=== PATIENT | female | born 1970 | race Caucasian/White ===

== ENCOUNTER 2017-11-17 07:06 | Day surgery (SDC) | payer OTHER ==
[2017-11-17] MEDS ORDERED: Lactated Ringers 1,000 ML IV SCH (07:15)
[2017-11-17] MEDS ORDERED: Sodium Chloride 0.9% 10 ML Syringe FLUSH PRN (07:15)
[2017-11-17] MEDS ORDERED: Midazolam 1 MG/ML 2 ML SDV IV ONE (09:00)
[2017-11-17] MEDS ORDERED: Lidocaine 2% 100 MG/5 ML Syringe IVPUSH ONE (09:00)
[2017-11-17] MEDS ORDERED: Propofol 200 MG/20 ML SDV IV ONE (09:00)
--- NOTE | 2017-11-17 09:18 | PCM.OPNOTE ---
- General Post-Op/Procedure Note Date of Surgery/Procedure: 11/17/17 Operative Procedure(s): egd with bx Findings: gastric mass Pre Op Diagnosis: hematemasis Post-Op Diagnosis: gastric mass Anesthesia Technique: MAC Primary Surgeon: Ilan Rao Anesthesia Provider: Martin Chiu Pathology: gastric mass Complications: None Condition: Good Free Text/Narrative:: see dictation
--- NOTE | 2017-11-17 13:16 | OR ---
DATE OF OPERATION: 11/17/2017 SURGEON: Ilan Rao MD PROCEDURE PERFORMED: Esophagogastroduodenoscopy with cold forceps biopsy. PREOPERATIVE DIAGNOSIS: Hematemesis. POSTOPERATIVE DIAGNOSIS: Antral mass. INDICATIONS FOR PROCEDURE: This is a 47-year-old white female who apparently last week had a single episode of hematemesis. She was offered and accepted an EGD. DESCRIPTION OF PROCEDURE: After an excellent IV sedation was administered, the bite block was inserted. The flexible endoscope was passed without difficulty down the patient's esophagus into the stomach. Stomach was insufflated. Scope was passed through the pylorus to the second portion of the duodenum and slowly withdrawn. The following findings were noted: The duodenum was unremarkable. The stomach just at the edge of the antrum reveals a pedunculated lesion. With this half of it encased and what appears to be normal mucosa, and then what appears to be extruding from part of it has a lesion, which was biopsied with cold biopsy forceps and sent for permanent. The esophagus was unremarkable. Stomach was deflated, scope was removed, the patient tolerated the procedure well, and was taken to recovery room in good condition. /[id number] /MODL
== END 2017-11-17 10:12 | disposition home or self-care (01) ==
LOC: FB.SDS 07:06
PROVIDERS: ATTEND Surgery
DX: K31.7 Polyp of stomach and duodenum (principal); I96 Gangrene, not elsewhere classified; B96.81 Helicobacter pylori [H. pylori] as the cause of diseases classified elsewhere; Z79.899 Other long term (current) drug therapy
CPT/HCPCS: 81025; 88305; 88341; 88342; J2250; J2704; J7120

== ENCOUNTER 2017-12-27 17:08 | Inpatient (IN) | payer OTHER ==
[2017-12-27] MEDS ORDERED: Ondansetron 4 MG/2 ML SDV IV PRN (18:10)
[2017-12-27] MEDS ORDERED: Sodium Chloride 0.9% 250 ML IV SCH (18:15)
[2017-12-27] MEDS ORDERED: Sodium Chloride 0.9% 1,000 ML IV SCH (18:15)
[2017-12-27] MEDS: Pantoprazole 40 MG Vial IVPUSH SCH (19:54)
[2017-12-27] MEDS: Sodium Chloride 0.9% 10 ML Syringe FLUSH PRN (19:54)
--- NOTE | 2017-12-28 08:10 | PCM.OPNOTE ---
- General Post-Op/Procedure Note Date of Surgery/Procedure: 12/28/17 Operative Procedure(s): egd with bx and fulgeration Findings: inflammatory polyp of less curve Pre Op Diagnosis: gastric polyp Post-Op Diagnosis: Same Anesthesia Technique: MAC Primary Surgeon: Ilan Rao Anesthesia Provider: Johnny Villaseñor Pathology: specimen Complications: None Condition: Good Free Text/Narrative:: Intake & Output 12/27/17 12/28/17 12/28/17 22:59 06:59 14:59 Intake Total 0 1349 Output Total 600 900 Balance -600 449 see dictation
[2017-12-28] MEDS: Pantoprazole 40 MG Vial IVPUSH SCH ×2 (08:51→19:24)
[2017-12-28] MEDS: D5 1/2 NS w/ 20 mEq/L KCl 1,000 ML IV SCH ×2 (09:47→23:19)
--- NOTE | 2017-12-28 12:49 | OR ---
DATE OF OPERATION: 12/28/2017 SURGEON: Ilan Rao MD PROCEDURE PERFORMED: EGD with biopsy and fulguration of bleeding inflammatory polyp. PREOPERATIVE DIAGNOSIS: Gastrointestinal bleeding with inflammatory polyp. POSTOPERATIVE DIAGNOSIS: Gastrointestinal bleeding with inflammatory polyp. INDICATIONS FOR PROCEDURE: This is a 47-year-old white female who is well known to my service. She was admitted and underwent an upper endoscopy for an upper gastrointestinal bleed 2 months ago. She was noted at that time to have an inflammatory polyp which was confirmed on biopsy and also to have Helicobacter pylori infection. We treated the infection with successful resolution of her initial problems. She did well until 2 days ago where she started to have some continued abdominal GI discomfort and was noted yesterday to be anemic. She received a 2 unit blood transfusion and was brought back to the endoscopy suite today to further evaluate the polyp. DESCRIPTION OF OPERATION: After an excellent IV sedation was administered, the bite block was inserted. The flexible endoscope was passed without difficulty down the patient's esophagus into the stomach. The stomach was insufflated and the polyp was identified slightly smaller than before having a normal coat of mucosa with an area of inflammation. Attempts to shave the area of inflammation off were successful. There was still some areas of bleeding. We were able to get our biopsy loop down around to the base of the polyp. However, attempts to fulgurate through were not successful and these were terminated due to the fact that I was worried about potential perforation of the stomach. We then fulgurated the areas that were bleeding and did stop the hemorrhage successfully. The biopsy specimen was retrieved and sent for pathology. The patient was taken to recovery in good condition. Plan is exploratory laparotomy tomorrow with wedge excision of this lesion that continues to bleed. We will also obtain a CT scan of the abdomen and pelvis today as part of our preoperative evaluation. /[id number] /MODL
[2017-12-28] MEDS ORDERED: Diatrizoate Meglumine/Diatrizoate Sodium 37% 30 ML Bottle PO ONE (13:45)
[2017-12-28] MEDS ORDERED: Iopamidol 755 Mg/ML 100 ML Bottle IV ONE (13:45)
--- NOTE | 2017-12-28 15:15 | CT ---
INDICATION: Bleeding inflammatory polyp of the stomach, post endoscopy, area of the lesser curvature gastric antrum. CT ABDOMEN AND PELVIS WITH CONTRAST: Spiral 2.5-mm axial sections were obtained through the abdomen and pelvis with oral and IV contrast (80 mL Isovue- 370 at 1.5 mL per second), with sagittal and coronal reconstructions, 2017. No comparison studies were available. Total Exam DLP = 335.50 mGy-cm. A polypoid mass is noted extending into the distal gastric body - gastric antrum at the anterior wall of the stomach. Thickening of the wall of the stomach is noted. The mass appears to be heterogeneous with increased density - contrast enhancement suggested centrally. Average Hounsfield units were approximately 62.7 on the axial image and approximately 53 on the coronal image and 66.6 Hounsfield units on the sagittal portion of the examination. The mass measures 36 x 47 mm axially and 31 x 38 mm coronally and is arising from the anterior gastric wall, extending posteriorly toward the posterior gastric wall in the area of the distal body of the stomach. A possible 6-mm lymph node is suggested in the anterior abdomen at axial image # 65 and coronal image #24 adjacent to the transverse colon and gastric wall in that area. This is nonspecific. No suspicious appearing retroperitoneal or mesenteric lymphadenopathy was identified - no definite metastatic disease process, either localized or distant, was identified. The liver and gallbladder , adrenals, kidneys, spleen, and pancreas all appear to be within normal limits. The common bile duct was normal in caliber. No evidence of free air or obstruction of the bowel was seen. There is noted a small amount of free fluid in the posterior cul-de-sac on the right, which most likely is physiologic, but should be correlated clinically. The uterus had a somewhat heterogeneous appearance, of questionable significance. The urinary bladder was unremarkable. IMPRESSION: 1. Polypoid lesion at the anterior caudal wall of the distal gastric body, etiology indeterminate. No definite evidence for metastatic disease process is identified. A single, 6-mm node is noted in an area adjacent to that polyp. 2. A small amount of free fluid is noted in the posterior cul-de-sac, which may be physiologic. Report faxed to Dr. Ilan Rao on 12/28/2017 at 1510 hours. [facility]
[2017-12-29] MEDS: Pantoprazole 40 MG Vial IVPUSH SCH ×2 (06:31→17:44)
[2017-12-29] MEDS: Sodium Chloride 0.9% 10 ML Syringe FLUSH PRN ×2 (07:30→09:09)
[2017-12-29] MEDS ORDERED: Propofol 200 MG/20 ML SDV IV ONE ×2 (07:30→09:13)
[2017-12-29] MEDS ORDERED: ceFAZolin 1 GM Vial IVPUSH ONE (09:00)
[2017-12-29] MEDS ORDERED: Lactated Ringers 1,000 ML IV ONE ×3 (09:13→12:28)
[2017-12-29] MEDS ORDERED: Ketorolac 30 MG/ML SDV IVPUSH ONE (09:13)
[2017-12-29] MEDS ORDERED: Ondansetron 4 MG/2 ML SDV IVPUSH ONE (09:13)
[2017-12-29] MEDS ORDERED: Glycopyrrolate 0.2 MG/ML 5 ML MDV IV ONE (09:13)
[2017-12-29] MEDS ORDERED: fentaNYL 100 MCG/2 ML SDV IV ONE (09:13)
[2017-12-29] MEDS ORDERED: Phenylephrine 1% 10 MG/ML SDV IV ONE (09:13)
[2017-12-29] MEDS ORDERED: Rocuronium 100 MG/10 ML MDV IV ONE (09:13)
[2017-12-29] MEDS ORDERED: Dexamethasone 4 MG/ML 5 ML MDV IVPUSH ONE (09:13)
[2017-12-29] MEDS ORDERED: Midazolam 1 MG/ML 2 ML SDV IV ONE (09:13)
[2017-12-29] MEDS ORDERED: Lidocaine 1% with EPINEPHrine 1:100,000 20 ML MDV INFILT ONE (09:29)
[2017-12-29] MEDS ORDERED: Bupivacaine 0.5% 30 ML SDV INFILT ONE (09:29)
--- NOTE | 2017-12-29 10:46 | PCM.OPNOTE ---
- General Post-Op/Procedure Note Date of Surgery/Procedure: 12/29/17 Operative Procedure(s): wedge resectin of gastric polyp Findings: polyp leision ant gastric wall had a exophytic compnent 1 cm margin Pre Op Diagnosis: gastric polyp Post-Op Diagnosis: Same Anesthesia Technique: General ET Tube, Local (8 ml 1% lido with epi/0.5% buvipicaine) Primary Surgeon: Ilan Rao Anesthesia Provider: Johnny Villaseñor Pathology: stomach with polyp Fluid Replacement, Intraop: 1,350 EBL in mLs: 50 Complications: None Condition: Good Free Text/Narrative:: see dictation Intake & Output
[2017-12-29] MEDS: Acetaminophen 1,000 MG in Premix Bag 1 BAG IV SCH ×3 (11:37→21:59)
[2017-12-29] MEDS: Morphine 2 MG/ML Syringe IVPUSH PRN ×2 (15:26→18:59)
[2017-12-29] MEDS: Lactated Ringers 1,000 ML IV SCH ×2 (15:36→23:56)
--- NOTE | 2017-12-29 15:49 | OR ---
DATE OF OPERATION: 12/29/2017 SURGEON: Ilan Rao MD PROCEDURE PERFORMED: Exploratory laparotomy with wedge resection of gastric polyp. PREOPERATIVE DIAGNOSIS: Gastric polyp with history of bleeding. POSTOPERATIVE DIAGNOSIS: Gastric polyp with history of bleeding. INDICATIONS FOR PROCEDURE: Ms. Haskins is a 47-year-old white female, who was admitted twice in the past several months for upper gastrointestinal bleeding. She was initially found to have a polypoid lesion on her stomach wall with diagnosis being an inflammatory polyp. She was also noted to have a marked Helicobacter pylori infection, was subsequently treated with resolution of her symptoms with the plan for a followup scope to see if this lesion involuted. Earlier this week, she was admitted with a history of anemia, black stools, and did receive a 2 unit blood transfusion. Yesterday, underwent an upper endoscopy, was noted to have a polyp still there, which was bleeding. The bleeding was controlled with electrocautery. We were unable to remove the lesion and therefore elected to do a wedge excision of this area. CT scan was obtained, which demonstrated the polyp lesion. DESCRIPTION OF PROCEDURE: After an excellent general anesthetic was administered via endotracheal tube, the patient was prepped and draped in usual sterile manner. A 1:1 mixture of 1% lidocaine with epinephrine 0.5% bupivacaine was used to infiltrate the midline from the xiphoid process down to the umbilicus. A vertical midline incision was carried out with a #15 scalpel blade and bleeding was controlled with electrocautery. The midline fascia was divided with electrocautery and the abdominal cavity was entered. The peritoneum was entered. The hand was inserted and liver was palpated as well as the spleen with no marked abnormality was noted. The polypoid lesion was easily mobilized and delivered out through the midline incision. This had an exophytic component as well. The mesentery was divided in the area of this lesion and specimen was passed off the field to be submitted. Stay sutures of 3-0 Vicryl were placed in 4 quadrants around the lesion, and after marking out approximately 1 cm to 1.5 cm margin, the stomach was entered using electrocautery and sharp dissection was used to dissect around circumferentially around the base of the polyp. The tissue grossly appeared to be normal and inferior, superior, and medial aspects of the specimen were marked on the gastric mucosa and the specimen was passed off the field. The defect then was closed in 2 layers, hand-sewn with 3-0 Vicryl, the 1st layer being a running [employer] stitch imbricating the stomach followed by an interrupted 3-0 Vicryl and Lembert stitches to imbricate the suture line. A nasogastric tube was then carefully passed down and palpated to be in good position well above the suture line and was taped into position. The wound was irrigated and then the stomach was then returned to normal anatomic position. The midline defect was closed with a #2 Prolene. The skin was then closed with erich. Needle, sponge, and instrument counts were reported as correct. EBL was approximately 50 mL. Fluids received was 1350. /[id number] 1540 /MODL
[2017-12-29] MEDS: D5 1/2 NS w/ 20 mEq/L KCl 1,000 ML IV SCH (15:57)
[2017-12-30] MEDS: Morphine 2 MG/ML Syringe IVPUSH PRN ×5 (00:26→23:35)
[2017-12-30] MEDS: Acetaminophen 1,000 MG in Premix Bag 1 BAG IV SCH (05:11)
[2017-12-30] MEDS: Pantoprazole 40 MG Vial IVPUSH SCH ×2 (05:32→17:02)
--- NOTE | 2017-12-30 07:50 | PCM.SURGPN ---
- General Info Date of Service: 12/30/17 POD#: 1 Functional Status: Reports: Pain Controlled, Urinating, Incentive Spirometry. Denies: New Symptoms - Review of Systems Pulmonary: Reports: No Symptoms Cardiovascular: Reports: No Symptoms Gastrointestinal: Reports: Abdominal Pain - Patient Data Vitals - Most Recent: Last Vital Signs Temp 36.7 C 12/30/17 05:30 Pulse 71 12/30/17 05:30 Resp 18 12/30/17 05:30 BP 98/63 12/30/17 05:30 Pulse Ox 96 12/30/17 05:30 Weight - Most Recent: 58.105 kg I&O - Last 24 Hours: Intake & Output 12/29/17 12/30/17 12/30/17 22:59 06:59 14:59 Intake Total 807 1319 Output Total 1050 875 Balance -243 444 Lab Results Last 24 Hrs: Laboratory Results - last 24 hr 12/29/17 12/30/17 12/30/17 Range/Units 07:45 06:50 06:50 WBC 11.8 (4.5-12.0) X10-3/uL RBC 2.99 L (3.23-5.20) x10(6)uL Hgb 10.3 L 8.4 L (11.5-15.5) g/dL Hct 25.5 L (30.0-51.3) % MCV 85.5 (80-96) fL MCH 28.0 (27.7-33.6) pg MCHC 32.8 (32.2-35.4) g/dL RDW 14.2 (11.5-15.5) % Plt Count 223 (125-369) X10(3)uL MPV 8.9 (7.4-10.4) fL Neut % (Auto) 75.0 (46-82) % Lymph % (Auto) 14.6 (13-37) % [place] % (Auto) 9.8 (4-12) % Eos % (Auto) 0 L (1.0-5.0) % Baso % (Auto) 0 (0-2) % Neut # (Auto) 8.9 H (1.6-8.3) # Lymph # (Auto) 1.7 (0.6-5.0) # [place] # (Auto) 1.2 (0.0-1.3) # Eos # (Auto) 0.0 (0.0-0.8) # Baso # (Auto) 0.0 (0.0-0.2) # Sodium 143 (135-145) mmol/L Potassium 4.1 (3.5-5.3) mmol/L Chloride 108 (100-110) mmol/L Carbon Dioxide 28 (21-32) mmol/L BUN 8 D (7-18) mg/dL Creatinine 1.0 (0.55-1.02) mg/dL Est Cr Clr Drug Dosing 54.41 mL/min Estimated GFR (MDRD) 59 L (>60) BUN/Creatinine Ratio 8.0 L (9-20) Glucose 104 (80-116) mg/dL Calcium 7.8 L (8.6-10.2) mg/dL Med Orders - Current: Current Medications Lactated Ringer's (Ringers, Lactated) 1,000 mls @ 125 mls/hr IV ASDIRECTED [facility] Last Admin: 12/29/17 23:56 Dose: 125 mls/hr Morphine Sulfate (Morphine) 2 mg IVPUSH Q1H PRN PRN Reason: Pain (severe 7-10) Last Admin: 12/30/17 00:26 Dose: 2 mg Ondansetron HCl (Zofran) 4 mg IV Q4H PRN PRN Reason: Nausea/Vomiting Pantoprazole Sodium (Protonix Iv) 40 mg IVPUSH Q12H [facility] Last Admin: 12/30/17 05:32 Dose: 40 mg Sodium Chloride (Saline Flush) 10 ml FLUSH ASDIRECTED PRN PRN Reason: Keep Vein Open Last Admin: 12/29/17 09:09 Dose: 10 ml Discontinued Medications Bupivacaine HCl (Marcaine 0.5%) 10 ml INFILT .STK-MED ONE Stop: 12/29/17 09:30 Last Admin: 12/29/17 09:29 Dose: 10 ml Cefazolin Sodium (Ancef) 1 gm IVPUSH ONETIME ONE Stop: 12/29/17 09:01 Last Admin: 12/29/17 09:06 Dose: 1 gm Diatrizoate Meglum/Diatrizoate Sod (Gastrografin 37%) 30 ml PO . DIRECTED ONE Stop: 12/28/17 13:46 Last Admin: 12/28/17 13:58 Dose: 30 ml Sodium Chloride (Normal Saline) 1,000 mls @ 125 mls/hr IV ASDIRECTED [facility] Last Admin: 12/28/17 02:13 Dose: 125 mls/hr Sodium Chloride (Normal Saline) 250 mls @ 100 mls/hr IV ASDIRECTED [facility] Last Admin: 12/27/17 23:52 Dose: 100 mls/hr Potassium Chloride/Dextrose/Sod Cl (D5 1/2 Ns W/ 20 Meq/L Kcl) 1,000 mls @ 75 mls/hr IV Q13H [facility] Last Admin: 12/29/17 15:57 Dose: Not Given Acetaminophen 1,000 mg/ Premix 100 mls @ 400 mls/hr IV Q6H [facility] Stop: 12/30/17 05:14 Last Admin: 12/30/17 05:11 Dose: 400 mls/hr Lactated Ringer's (Ringers, Lactated) 1,000 mls @ 999 mls/hr IV BOLUS ONE Stop: 12/29/17 13:28 Last Admin: 12/29/17 12:52 Dose: 999 mls/hr Lactated Ringer's (Ringers, Lactated) 1,000 mls @ 999 mls/hr IV BOLUS ONE Stop: 12/29/17 13:25 Last Admin: 12/29/17 12:50 Dose: 999 mls/hr Iopamidol (Isovue-370 (76%)) 100 ml IV ONETIME ONE Stop: 12/28/17 13:46 Last Admin: 12/28/17 13:58 Dose: 80 ml Lidocaine/Epinephrine (Xylocaine 1% With Epinephrine 1:100,000) 10 ml INFILT .STK-MED ONE Stop: 12/29/17 09:30 Last Admin: 12/29/17 09:29 Dose: 10 ml - Exam Wound/Incisions: Dressing Dry and Intact Lungs: Clear to Auscultation, Normal Respiratory Effort, Rhonchi Cardiovascular: Regular Rate GI/Abdominal Exam: Normal Bowel Sounds, Soft, Abnormal Bowel Sounds (hypoactive ) - Problem List & Annotations (1) Mass of stomach SNOMED Code(s): 675225515 Code(s): K31.9 - DISEASE OF STOMACH AND DUODENUM, UNSPECIFIED Status: Acute Current Visit: No - Problem List Review Problem List Initiated/Reviewed/Updated: Yes - My Orders Last 24 Hours: Active Orders 24 hr Category Date Time Status Ambulate [RC] .TID Care 12/29/17 10:37 Active Gastrointestinal Tube Mgmt [RC] QSHIFT Care 12/29/17 10:36 Active Notify Provider Intake and Out [RC] PRN Care 12/29/17 10:39 Active Notify Provider Vital Signs [RC] PRN Care 12/29/17 10:39 Active Oxygen Therapy [RC] PRN Care 12/29/17 10:37 Active RT Incentive Spirometry [RC] Q2HWA Care 12/29/17 10:36 Active Lactated Ringers [Ringers, Lactated] 1,000 ml Med 12/29/17 10:45 Active IV ASDIRECTED Morphine Med 12/29/17 10:36 Active 2 mg IVPUSH Q1H PRN SCD [Sequential Compression Device] [OM.PC] Routine Oth 12/29/17 07:11 Ordered Medication Orders Lactated Ringer's (Ringers, Lactated) 1,000 mls @ 125 mls/hr IV ASDIRECTED [facility] Last Admin: 12/29/17 23:56 Dose: 125 mls/hr Infusion: 12/29/17 23:36 Dose: 125 mls/hr Admin: 12/29/17 15:36 Dose: 125 mls/hr Morphine Sulfate (Morphine) 2 mg IVPUSH Q1H PRN PRN Reason: Pain (severe 7-10) Last Admin: 12/30/17 00:26 Dose: 2 mg Admin: 12/29/17 18:59 Dose: 2 mg Admin: 12/29/17 15:26 Dose: 2 mg Ondansetron HCl (Zofran) 4 mg IV Q4H PRN PRN Reason: Nausea/Vomiting Pantoprazole Sodium (Protonix Iv) 40 mg IVPUSH Q12H [facility] Last Admin: 12/30/17 05:32 Dose: 40 mg Admin: 12/29/17 17:44 Dose: 40 mg Admin: 12/29/17 06:31 Dose: 40 mg Admin: 12/28/17 19:24 Dose: 40 mg Admin: 12/28/17 08:51 Dose: 40 mg Admin: 12/27/17 19:54 Dose: 40 mg Sodium Chloride (Saline Flush) 10 ml FLUSH ASDIRECTED PRN PRN Reason: Keep Vein Open Last Admin: 12/29/17 09:09 Dose: 10 ml Admin: 12/29/17 07:30 Dose: 10 ml Admin: 12/27/17 19:54 Dose: 10 ml - Assessment Assessment (Free Text/Narrative):: doing quite well - Plan Plan (Free Text/Narrative):: continue current rx anticipate d/c of NGT later today.
[2017-12-30] MEDS: Lactated Ringers 1,000 ML IV SCH (08:40)
[2017-12-30] MEDS: D5 1/2 NS w/ 20 mEq/L KCl 1,000 ML IV SCH (17:07)
[2017-12-30] MEDS: Sodium Chloride 0.9% 10 ML Syringe FLUSH PRN (23:37)
[2017-12-31] MEDS: D5 1/2 NS w/ 20 mEq/L KCl 1,000 ML IV SCH ×4 (01:11→20:28)
[2017-12-31] MEDS: Pantoprazole 40 MG Vial IVPUSH SCH ×2 (05:18→18:06)
[2017-12-31] MEDS: Morphine 2 MG/ML Syringe IVPUSH PRN ×3 (08:22→22:22)
--- NOTE | 2017-12-31 09:18 | PCM.SURGPN ---
- General Info POD#: 2 Functional Status: Reports: Pain Controlled, Ambulating, Urinating - Review of Systems General: Reports: No Symptoms Pulmonary: Reports: No Symptoms Cardiovascular: Reports: No Symptoms Gastrointestinal: Reports: Abdominal Pain (little incisional ). Denies: Flatus - Patient Data Vitals - Most Recent: Last Vital Signs Temp 36.3 C 12/31/17 04:00 Pulse 78 12/31/17 04:00 Resp 16 12/31/17 04:00 BP 96/62 12/31/17 04:00 Pulse Ox 98 12/31/17 04:00 Weight - Most Recent: 58.105 kg I&O - Last 24 Hours: Intake & Output 12/30/17 12/31/17 12/31/17 22:59 06:59 14:59 Intake Total 557 896 Output Total 850 1900 Balance -293 -1004 Med Orders - Current: Current Medications Lactated Ringer's (Ringers, Lactated) 1,000 mls @ 125 mls/hr IV ASDIRECTED [facility] Last Admin: 12/30/17 08:40 Dose: 125 mls/hr Potassium Chloride/Dextrose/Sod Cl (D5 1/2 Ns W/ 20 Meq/L Kcl) 1,000 mls @ 125 mls/hr IV Q8H [facility] Last Admin: 12/31/17 09:02 Dose: 125 mls/hr Morphine Sulfate (Morphine) 2 mg IVPUSH Q1H PRN PRN Reason: Pain (severe 7-10) Last Admin: 12/31/17 08:22 Dose: 2 mg Ondansetron HCl (Zofran) 4 mg IV Q4H PRN PRN Reason: Nausea/Vomiting Pantoprazole Sodium (Protonix Iv) 40 mg IVPUSH Q12H [facility] Last Admin: 12/31/17 05:18 Dose: 40 mg Sodium Chloride (Saline Flush) 10 ml FLUSH ASDIRECTED PRN PRN Reason: Keep Vein Open Last Admin: 12/30/17 23:37 Dose: 10 ml Discontinued Medications Bupivacaine HCl (Marcaine 0.5%) 10 ml INFILT .STK-MED ONE Stop: 12/29/17 09:30 Last Admin: 12/29/17 09:29 Dose: 10 ml Cefazolin Sodium (Ancef) 1 gm IVPUSH ONETIME ONE Stop: 12/29/17 09:01 Last Admin: 12/29/17 09:06 Dose: 1 gm Diatrizoate Meglum/Diatrizoate Sod (Gastrografin 37%) 30 ml PO . DIRECTED ONE Stop: 12/28/17 13:46 Last Admin: 12/28/17 13:58 Dose: 30 ml Sodium Chloride (Normal Saline) 1,000 mls @ 125 mls/hr IV ASDIRECTED [facility] Last Admin: 12/28/17 02:13 Dose: 125 mls/hr Sodium Chloride (Normal Saline) 250 mls @ 100 mls/hr IV ASDIRECTED [facility] Last Admin: 12/27/17 23:52 Dose: 100 mls/hr Potassium Chloride/Dextrose/Sod Cl (D5 1/2 Ns W/ 20 Meq/L Kcl) 1,000 mls @ 75 mls/hr IV Q13H [facility] Last Admin: 12/29/17 15:57 Dose: Not Given Acetaminophen 1,000 mg/ Premix 100 mls @ 400 mls/hr IV Q6H [facility] Stop: 12/30/17 05:14 Last Admin: 12/30/17 05:11 Dose: 400 mls/hr Lactated Ringer's (Ringers, Lactated) 1,000 mls @ 999 mls/hr IV BOLUS ONE Stop: 12/29/17 13:28 Last Admin: 12/29/17 12:52 Dose: 999 mls/hr Lactated Ringer's (Ringers, Lactated) 1,000 mls @ 999 mls/hr IV BOLUS ONE Stop: 12/29/17 13:25 Last Admin: 12/29/17 12:50 Dose: 999 mls/hr Iopamidol (Isovue-370 (76%)) 100 ml IV ONETIME ONE Stop: 12/28/17 13:46 Last Admin: 12/28/17 13:58 Dose: 80 ml Lidocaine/Epinephrine (Xylocaine 1% With Epinephrine 1:100,000) 10 ml INFILT .STK-MED ONE Stop: 12/29/17 09:30 Last Admin: 12/29/17 09:29 Dose: 10 ml - Exam Wound/Incisions: Dressing Dry and Intact General: Alert, Cooperative, No Acute Distress Lungs: Clear to Auscultation, Normal Respiratory Effort Cardiovascular: Regular Rate, Regular Rhythm GI/Abdominal Exam: Normal Bowel Sounds, Soft Skin: Warm, Dry, Intact - Problem List & Annotations (1) Mass of stomach SNOMED Code(s): 211324441 Code(s): K31.9 - DISEASE OF STOMACH AND DUODENUM, UNSPECIFIED Status: Acute Current Visit: No - Problem List Review Problem List Initiated/Reviewed/Updated: Yes - My Orders Last 24 Hours: Active Orders 24 hr Category Date Time Status CBC WITH AUTO DIFF [HEME] Routine Lab 12/31/17 09:06 Ordered D5 1/2 NS w/ 20 mEq/L KCl 1,000 ml Med 12/30/17 16:45 Active IV Q8H NG [Nasogastric Orogastric Tube Removal] [OM.PC] Oth 12/30/17 16:43 Ordered Routine Medication Orders Lactated Ringer's (Ringers, Lactated) 1,000 mls @ 125 mls/hr IV ASDIRECTED [facility] Last Admin: 12/30/17 08:40 Dose: 125 mls/hr Infusion: 12/30/17 07:56 Dose: 125 mls/hr Admin: 12/29/17 23:56 Dose: 125 mls/hr Infusion: 12/29/17 23:36 Dose: 125 mls/hr Admin: 12/29/17 15:36 Dose: 125 mls/hr Potassium Chloride/Dextrose/Sod Cl (D5 1/2 Ns W/ 20 Meq/L Kcl) 1,000 mls @ 125 mls/hr IV Q8H [facility] Last Admin: 12/31/17 09:02 Dose: 125 mls/hr Infusion: 12/31/17 09:02 Dose: 125 mls/hr Admin: 12/31/17 01:11 Dose: 125 mls/hr Infusion: 12/31/17 01:07 Dose: 125 mls/hr Admin: 12/30/17 17:07 Dose: 125 mls/hr Morphine Sulfate (Morphine) 2 mg IVPUSH Q1H PRN PRN Reason: Pain (severe 7-10) Last Admin: 12/31/17 08:22 Dose: 2 mg Admin: 12/30/17 23:35 Dose: 2 mg Admin: 12/30/17 16:57 Dose: 2 mg Admin: 12/30/17 13:30 Dose: 2 mg Admin: 12/30/17 08:49 Dose: 2 mg Admin: 12/30/17 00:26 Dose: 2 mg Admin: 12/29/17 18:59 Dose: 2 mg Admin: 12/29/17 15:26 Dose: 2 mg Ondansetron HCl (Zofran) 4 mg IV Q4H PRN PRN Reason: Nausea/Vomiting Pantoprazole Sodium (Protonix Iv) 40 mg IVPUSH Q12H [facility] Last Admin: 12/31/17 05:18 Dose: 40 mg Admin: 12/30/17 17:02 Dose: 40 mg Admin: 12/30/17 05:32 Dose: 40 mg Admin: 12/29/17 17:44 Dose: 40 mg Admin: 12/29/17 06:31 Dose: 40 mg Admin: 12/28/17 19:24 Dose: 40 mg Admin: 12/28/17 08:51 Dose: 40 mg Admin: 12/27/17 19:54 Dose: 40 mg Sodium Chloride (Saline Flush) 10 ml FLUSH ASDIRECTED PRN PRN Reason: Keep Vein Open Last Admin: 12/30/17 23:37 Dose: 10 ml Admin: 12/29/17 09:09 Dose: 10 ml Admin: 12/29/17 07:30 Dose: 10 ml Admin: 12/27/17 19:54 Dose: 10 ml - Assessment Assessment (Free Text/Narrative):: mobilizing fluids - Plan Plan (Free Text/Narrative):: will allow ice chips decrease ivf
[2017-12-31] MEDS: Sodium Chloride 0.9% 10 ML Syringe FLUSH PRN (22:23)
[2018-01-01] MEDS: Pantoprazole 40 MG Vial IVPUSH SCH ×2 (06:23→17:12)
[2018-01-01] MEDS: Sodium Chloride 0.9% 10 ML Syringe FLUSH PRN (06:23)
--- NOTE | 2018-01-01 09:13 | PCM.SURGPN ---
- General Info Date of Service: 01/01/18 POD#: 3 Functional Status: Reports: Pain Controlled, Tolerating Diet (ice chips ), Ambulating, Urinating - Review of Systems Gastrointestinal: Reports: Abdominal Pain, Flatus (one small amount of flatus ) . Denies: Nausea, Vomiting - Patient Data Vitals - Most Recent: Last Vital Signs Temp 36.4 C 01/01/18 04:26 Pulse 72 01/01/18 04:26 Resp 16 01/01/18 04:26 BP 98/56 L 01/01/18 04:26 Pulse Ox 100 01/01/18 04:26 Weight - Most Recent: 58.105 kg I&O - Last 24 Hours: Intake & Output 12/31/17 01/01/18 01/01/18 22:59 06:59 14:59 Intake Total 1505 833 Output Total 650 300 Balance 855 533 Lab Results Last 24 Hrs: Laboratory Results - last 24 hr 12/27/17 12/31/17 Range/Units 18:25 09:15 WBC 6.7 (4.5-12.0) X10-3/uL RBC 3.16 L (3.23-5.20) x10(6)uL Hgb 8.7 L (11.5-15.5) g/dL Hct 26.8 L (30.0-51.3) % MCV 85.0 (80-96) fL MCH 27.7 (27.7-33.6) pg MCHC 32.5 (32.2-35.4) g/dL RDW 14.6 (11.5-15.5) % Plt Count 222 (125-369) X10(3)uL MPV 8.8 (7.4-10.4) fL Neut % (Auto) 70.5 (46-82) % Lymph % (Auto) 18.6 (13-37) % [place] % (Auto) 9.0 (4-12) % Eos % (Auto) 2 (1.0-5.0) % Baso % (Auto) 0 (0-2) % Neut # (Auto) 4.8 (1.6-8.3) # Lymph # (Auto) 1.2 (0.6-5.0) # [place] # (Auto) 0.6 (0.0-1.3) # Eos # (Auto) 0.1 (0.0-0.8) # Baso # (Auto) 0.0 (0.0-0.2) # Crossmatch See Detail Med Orders - Current: Current Medications Potassium Chloride/Dextrose/Sod Cl (D5 1/2 Ns W/ 20 Meq/L Kcl) 1,000 mls @ 75 mls/hr IV Q13H [facility] Last Admin: 12/31/17 20:28 Dose: 75 mls/hr Morphine Sulfate (Morphine) 2 mg IVPUSH Q1H PRN PRN Reason: Pain (severe 7-10) Last Admin: 12/31/17 22:22 Dose: 2 mg Ondansetron HCl (Zofran) 4 mg IV Q4H PRN PRN Reason: Nausea/Vomiting Pantoprazole Sodium (Protonix Iv) 40 mg IVPUSH Q12H [facility] Last Admin: 01/01/18 06:23 Dose: 40 mg Sodium Chloride (Saline Flush) 10 ml FLUSH ASDIRECTED PRN PRN Reason: Keep Vein Open Last Admin: 01/01/18 06:23 Dose: 10 ml Discontinued Medications Bupivacaine HCl (Marcaine 0.5%) 10 ml INFILT .STK-MED ONE Stop: 12/29/17 09:30 Last Admin: 12/29/17 09:29 Dose: 10 ml Cefazolin Sodium (Ancef) 1 gm IVPUSH ONETIME ONE Stop: 12/29/17 09:01 Last Admin: 12/29/17 09:06 Dose: 1 gm Diatrizoate Meglum/Diatrizoate Sod (Gastrografin 37%) 30 ml PO . DIRECTED ONE Stop: 12/28/17 13:46 Last Admin: 12/28/17 13:58 Dose: 30 ml Sodium Chloride (Normal Saline) 1,000 mls @ 125 mls/hr IV ASDIRECTED [facility] Last Admin: 12/28/17 02:13 Dose: 125 mls/hr Sodium Chloride (Normal Saline) 250 mls @ 100 mls/hr IV ASDIRECTED [facility] Last Admin: 12/27/17 23:52 Dose: 100 mls/hr Potassium Chloride/Dextrose/Sod Cl (D5 1/2 Ns W/ 20 Meq/L Kcl) 1,000 mls @ 75 mls/hr IV Q13H [facility] Last Admin: 12/29/17 15:57 Dose: Not Given Lactated Ringer's (Ringers, Lactated) 1,000 mls @ 125 mls/hr IV ASDIRECTED [facility] Last Admin: 12/30/17 08:40 Dose: 125 mls/hr Acetaminophen 1,000 mg/ Premix 100 mls @ 400 mls/hr IV Q6H [facility] Stop: 12/30/17 05:14 Last Admin: 12/30/17 05:11 Dose: 400 mls/hr Lactated Ringer's (Ringers, Lactated) 1,000 mls @ 999 mls/hr IV BOLUS ONE Stop: 12/29/17 13:28 Last Admin: 12/29/17 12:52 Dose: 999 mls/hr Lactated Ringer's (Ringers, Lactated) 1,000 mls @ 999 mls/hr IV BOLUS ONE Stop: 12/29/17 13:25 Last Admin: 12/29/17 12:50 Dose: 999 mls/hr Potassium Chloride/Dextrose/Sod Cl (D5 1/2 Ns W/ 20 Meq/L Kcl) 1,000 mls @ 75 mls/hr IV Q8H [facility] Stop: 12/31/17 22:59 Last Infusion: 12/31/17 11:14 Dose: 75 mls/hr Iopamidol (Isovue-370 (76%)) 100 ml IV ONETIME ONE Stop: 12/28/17 13:46 Last Admin: 12/28/17 13:58 Dose: 80 ml Lidocaine/Epinephrine (Xylocaine 1% With Epinephrine 1:100,000) 10 ml INFILT .STK-MED ONE Stop: 12/29/17 09:30 Last Admin: 12/29/17 09:29 Dose: 10 ml - Exam Wound/Incisions: Healing Well, No Drainage. No: Erythema General: Alert, Oriented, Cooperative, No Acute Distress Lungs: Clear to Auscultation, Normal Respiratory Effort Cardiovascular: Regular Rate, Regular Rhythm GI/Abdominal Exam: Normal Bowel Sounds, Soft, Tender (very mild along the incision) Skin: Warm, Dry, Intact - Problem List & Annotations (1) Mass of stomach SNOMED Code(s): 176141943 Code(s): K31.9 - DISEASE OF STOMACH AND DUODENUM, UNSPECIFIED Status: Acute Current Visit: No - Problem List Review Problem List Initiated/Reviewed/Updated: Yes - My Orders Last 24 Hours: Active Orders 24 hr Category Date Time Status D5 1/2 NS w/ 20 mEq/L KCl 1,000 ml Med 12/31/17 23:00 Active IV Q13H Medication Orders Potassium Chloride/Dextrose/Sod Cl (D5 1/2 Ns W/ 20 Meq/L Kcl) 1,000 mls @ 75 mls/hr IV Q13H [facility] Last Admin: 12/31/17 20:28 Dose: 75 mls/hr Morphine Sulfate (Morphine) 2 mg IVPUSH Q1H PRN PRN Reason: Pain (severe 7-10) Last Admin: 12/31/17 22:22 Dose: 2 mg Admin: 12/31/17 14:12 Dose: 2 mg Admin: 12/31/17 08:22 Dose: 2 mg Admin: 12/30/17 23:35 Dose: 2 mg Admin: 12/30/17 16:57 Dose: 2 mg Admin: 12/30/17 13:30 Dose: 2 mg Admin: 12/30/17 08:49 Dose: 2 mg Admin: 12/30/17 00:26 Dose: 2 mg Admin: 12/29/17 18:59 Dose: 2 mg Admin: 12/29/17 15:26 Dose: 2 mg Ondansetron HCl (Zofran) 4 mg IV Q4H PRN PRN Reason: Nausea/Vomiting Pantoprazole Sodium (Protonix Iv) 40 mg IVPUSH Q12H [facility] Last Admin: 01/01/18 06:23 Dose: 40 mg Admin: 12/31/17 18:06 Dose: 40 mg Admin: 12/31/17 05:18 Dose: 40 mg Admin: 12/30/17 17:02 Dose: 40 mg Admin: 12/30/17 05:32 Dose: 40 mg Admin: 12/29/17 17:44 Dose: 40 mg Admin: 12/29/17 06:31 Dose: 40 mg Admin: 12/28/17 19:24 Dose: 40 mg Admin: 12/28/17 08:51 Dose: 40 mg Admin: 12/27/17 19:54 Dose: 40 mg Sodium Chloride (Saline Flush) 10 ml FLUSH ASDIRECTED PRN PRN Reason: Keep Vein Open Last Admin: 01/01/18 06:23 Dose: 10 ml Admin: 12/31/17 22:23 Dose: 10 ml Admin: 12/30/17 23:37 Dose: 10 ml Admin: 12/29/17 09:09 Dose: 10 ml Admin: 12/29/17 07:30 Dose: 10 ml Admin: 12/27/17 19:54 Dose: 10 ml - Assessment Assessment (Free Text/Narrative):: doing well - Plan Plan (Free Text/Narrative):: clear liquid diet may shower. stop I+O's
[2018-01-01] MEDS: D5 1/2 NS w/ 20 mEq/L KCl 1,000 ML IV SCH (11:22)
[2018-01-02] MEDS: D5 1/2 NS w/ 20 mEq/L KCl 1,000 ML IV SCH ×2 (00:43→20:06)
[2018-01-02] MEDS: Pantoprazole 40 MG Vial IVPUSH SCH ×2 (06:38→18:17)
[2018-01-02] MEDS ORDERED: Acetaminophen/HYDROcodone 325-5 MG Tab PO PRN (07:35)
--- NOTE | 2018-01-02 07:38 | PCM.SURGPN ---
- General Info Date of Service: 01/02/18 Functional Status: Reports: Pain Controlled, Tolerating Diet, Ambulating, Urinating, Incentive Spirometry - Review of Systems Gastrointestinal: Reports: Flatus (min amount of flatus ) - Patient Data Vitals - Most Recent: Last Vital Signs Temp 36.9 C 01/02/18 00:00 Pulse 89 01/02/18 00:00 Resp 18 01/02/18 00:00 BP 96/54 L 01/02/18 00:00 Pulse Ox 98 01/02/18 00:00 Weight - Most Recent: 58.105 kg I&O - Last 24 Hours: Intake & Output 01/01/18 01/02/18 01/02/18 22:59 06:59 14:59 Intake Total 661 163 Balance 661 163 Med Orders - Current: Current Medications Ondansetron HCl (Zofran) 4 mg IV Q4H PRN PRN Reason: Nausea/Vomiting Pantoprazole Sodium (Protonix Iv) 40 mg IVPUSH Q12H [facility] Last Admin: 01/02/18 06:38 Dose: 40 mg Sodium Chloride (Saline Flush) 10 ml FLUSH ASDIRECTED PRN PRN Reason: Keep Vein Open Last Admin: 01/01/18 06:23 Dose: 10 ml Discontinued Medications Bupivacaine HCl (Marcaine 0.5%) 10 ml INFILT .STK-MED ONE Stop: 12/29/17 09:30 Last Admin: 12/29/17 09:29 Dose: 10 ml Cefazolin Sodium (Ancef) 1 gm IVPUSH ONETIME ONE Stop: 12/29/17 09:01 Last Admin: 12/29/17 09:06 Dose: 1 gm Diatrizoate Meglum/Diatrizoate Sod (Gastrografin 37%) 30 ml PO . DIRECTED ONE Stop: 12/28/17 13:46 Last Admin: 12/28/17 13:58 Dose: 30 ml Sodium Chloride (Normal Saline) 1,000 mls @ 125 mls/hr IV ASDIRECTED [facility] Last Admin: 12/28/17 02:13 Dose: 125 mls/hr Sodium Chloride (Normal Saline) 250 mls @ 100 mls/hr IV ASDIRECTED [facility] Last Admin: 12/27/17 23:52 Dose: 100 mls/hr Potassium Chloride/Dextrose/Sod Cl (D5 1/2 Ns W/ 20 Meq/L Kcl) 1,000 mls @ 75 mls/hr IV Q13H [facility] Last Admin: 12/29/17 15:57 Dose: Not Given Lactated Ringer's (Ringers, Lactated) 1,000 mls @ 125 mls/hr IV ASDIRECTED [facility] Last Admin: 12/30/17 08:40 Dose: 125 mls/hr Acetaminophen 1,000 mg/ Premix 100 mls @ 400 mls/hr IV Q6H [facility] Stop: 12/30/17 05:14 Last Admin: 12/30/17 05:11 Dose: 400 mls/hr Lactated Ringer's (Ringers, Lactated) 1,000 mls @ 999 mls/hr IV BOLUS ONE Stop: 12/29/17 13:28 Last Admin: 12/29/17 12:52 Dose: 999 mls/hr Lactated Ringer's (Ringers, Lactated) 1,000 mls @ 999 mls/hr IV BOLUS ONE Stop: 12/29/17 13:25 Last Admin: 12/29/17 12:50 Dose: 999 mls/hr Potassium Chloride/Dextrose/Sod Cl (D5 1/2 Ns W/ 20 Meq/L Kcl) 1,000 mls @ 75 mls/hr IV Q8H [facility] Stop: 12/31/17 22:59 Last Infusion: 12/31/17 20:55 Dose: Infused Potassium Chloride/Dextrose/Sod Cl (D5 1/2 Ns W/ 20 Meq/L Kcl) 1,000 mls @ 75 mls/hr IV Q13H [facility] Last Admin: 01/02/18 00:43 Dose: 75 mls/hr Iopamidol (Isovue-370 (76%)) 100 ml IV ONETIME ONE Stop: 12/28/17 13:46 Last Admin: 12/28/17 13:58 Dose: 80 ml Lidocaine/Epinephrine (Xylocaine 1% With Epinephrine 1:100,000) 10 ml INFILT .STK-MED ONE Stop: 12/29/17 09:30 Last Admin: 12/29/17 09:29 Dose: 10 ml Morphine Sulfate (Morphine) 2 mg IVPUSH Q1H PRN PRN Reason: Pain (severe 7-10) Last Admin: 12/31/17 22:22 Dose: 2 mg - Exam Wound/Incisions: Healing Well Lungs: Clear to Auscultation, Normal Respiratory Effort Cardiovascular: Regular Rate, Regular Rhythm GI/Abdominal Exam: Normal Bowel Sounds, Soft, Non-Tender Skin: Warm, Dry, Intact - Problem List & Annotations (1) Mass of stomach SNOMED Code(s): 026823766 Code(s): K31.9 - DISEASE OF STOMACH AND DUODENUM, UNSPECIFIED Status: Acute Current Visit: No - Problem List Review Problem List Initiated/Reviewed/Updated: Yes - My Orders Last 24 Hours: Active Orders 24 hr Category Date Time Status Full Liquid Diet [DIET] Diet 01/02/18 Breakfast Ordered Acetaminophen/HYDROcodone [[place] 325-5 MG] Med 01/02/18 07:35 Ordered 1 tab PO Q4H PRN Convert IV to Saline Lock [OM.PC] Routine Oth 01/02/18 07:35 Ordered Medication Orders Ondansetron HCl (Zofran) 4 mg IV Q4H PRN PRN Reason: Nausea/Vomiting Pantoprazole Sodium (Protonix Iv) 40 mg IVPUSH Q12H [facility] Last Admin: 01/02/18 06:38 Dose: 40 mg Admin: 01/01/18 17:12 Dose: 40 mg Admin: 01/01/18 06:23 Dose: 40 mg Admin: 12/31/17 18:06 Dose: 40 mg Admin: 12/31/17 05:18 Dose: 40 mg Admin: 12/30/17 17:02 Dose: 40 mg Admin: 12/30/17 05:32 Dose: 40 mg Admin: 12/29/17 17:44 Dose: 40 mg Admin: 12/29/17 06:31 Dose: 40 mg Admin: 12/28/17 19:24 Dose: 40 mg Admin: 12/28/17 08:51 Dose: 40 mg Admin: 12/27/17 19:54 Dose: 40 mg Sodium Chloride (Saline Flush) 10 ml FLUSH ASDIRECTED PRN PRN Reason: Keep Vein Open Last Admin: 01/01/18 06:23 Dose: 10 ml Admin: 12/31/17 22:23 Dose: 10 ml Admin: 12/30/17 23:37 Dose: 10 ml Admin: 12/29/17 09:09 Dose: 10 ml Admin: 12/29/17 07:30 Dose: 10 ml Admin: 12/27/17 19:54 Dose: 10 ml - Assessment Assessment (Free Text/Narrative):: doing well - Plan Plan (Free Text/Narrative):: will advance diet po pain medication saline lock iv
[2018-01-02] MEDS: Bisacodyl 10 MG Supp RECTAL SCH (08:56)
[2018-01-02] MEDS: Sodium Chloride 0.9% 10 ML Syringe FLUSH PRN (18:20)
[2018-01-03] MEDS: Sodium Chloride 0.9% 10 ML Syringe FLUSH PRN ×2 (06:05→07:36)
[2018-01-03] MEDS: Pantoprazole 40 MG Vial IVPUSH SCH (06:05)
[2018-01-03] MEDS: Bisacodyl 10 MG Supp RECTAL SCH (08:31)
--- NOTE | 2018-01-03 10:21 | PCM.SURGPN ---
- General Info Date of Service: 01/03/18 POD#: 5 Functional Status: Reports: Pain Controlled, Tolerating Diet, Ambulating, Urinating - Review of Systems General: Reports: No Symptoms - Patient Data Vitals - Most Recent: Last Vital Signs Temp 36.6 C 01/03/18 02:30 Pulse 68 01/03/18 02:30 Resp 18 01/03/18 02:30 BP 118/68 01/03/18 02:30 Pulse Ox 98 01/03/18 02:30 Weight - Most Recent: 58.105 kg I&O - Last 24 Hours: Intake & Output 01/02/18 01/03/18 01/03/18 22:59 06:59 14:59 Output Total 800 Balance -800 Med Orders - Current: Current Medications Hydrocodone Bitart/Acetaminophen ([place] 325-5 Mg) 1 tab PO Q4H PRN PRN Reason: Pain Bisacodyl (Dulcolax) 10 mg RECTAL DAILY [facility] Last Admin: 01/03/18 08:31 Dose: 10 mg Ondansetron HCl (Zofran) 4 mg IV Q4H PRN PRN Reason: Nausea/Vomiting Pantoprazole Sodium (Protonix Iv) 40 mg IVPUSH Q12H [facility] Last Admin: 01/03/18 06:05 Dose: 40 mg Sodium Chloride (Saline Flush) 10 ml FLUSH ASDIRECTED PRN PRN Reason: Keep Vein Open Last Admin: 01/03/18 07:36 Dose: 10 ml Discontinued Medications Bupivacaine HCl (Marcaine 0.5%) 10 ml INFILT .STK-MED ONE Stop: 12/29/17 09:30 Last Admin: 12/29/17 09:29 Dose: 10 ml Cefazolin Sodium (Ancef) 1 gm IVPUSH ONETIME ONE Stop: 12/29/17 09:01 Last Admin: 12/29/17 09:06 Dose: 1 gm Diatrizoate Meglum/Diatrizoate Sod (Gastrografin 37%) 30 ml PO . DIRECTED ONE Stop: 12/28/17 13:46 Last Admin: 12/28/17 13:58 Dose: 30 ml Sodium Chloride (Normal Saline) 1,000 mls @ 125 mls/hr IV ASDIRECTED [facility] Last Admin: 12/28/17 02:13 Dose: 125 mls/hr Sodium Chloride (Normal Saline) 250 mls @ 100 mls/hr IV ASDIRECTED [facility] Last Admin: 12/27/17 23:52 Dose: 100 mls/hr Potassium Chloride/Dextrose/Sod Cl (D5 1/2 Ns W/ 20 Meq/L Kcl) 1,000 mls @ 75 mls/hr IV Q13H [facility] Last Admin: 12/29/17 15:57 Dose: Not Given Lactated Ringer's (Ringers, Lactated) 1,000 mls @ 125 mls/hr IV ASDIRECTED [facility] Last Admin: 12/30/17 08:40 Dose: 125 mls/hr Acetaminophen 1,000 mg/ Premix 100 mls @ 400 mls/hr IV Q6H [facility] Stop: 12/30/17 05:14 Last Admin: 12/30/17 05:11 Dose: 400 mls/hr Lactated Ringer's (Ringers, Lactated) 1,000 mls @ 999 mls/hr IV BOLUS ONE Stop: 12/29/17 13:28 Last Admin: 12/29/17 12:52 Dose: 999 mls/hr Lactated Ringer's (Ringers, Lactated) 1,000 mls @ 999 mls/hr IV BOLUS ONE Stop: 12/29/17 13:25 Last Admin: 12/29/17 12:50 Dose: 999 mls/hr Potassium Chloride/Dextrose/Sod Cl (D5 1/2 Ns W/ 20 Meq/L Kcl) 1,000 mls @ 75 mls/hr IV Q8H [facility] Stop: 12/31/17 22:59 Last Infusion: 12/31/17 20:55 Dose: Infused Potassium Chloride/Dextrose/Sod Cl (D5 1/2 Ns W/ 20 Meq/L Kcl) 1,000 mls @ 75 mls/hr IV Q13H [facility] Last Admin: 01/02/18 20:06 Dose: Not Given Iopamidol (Isovue-370 (76%)) 100 ml IV ONETIME ONE Stop: 12/28/17 13:46 Last Admin: 12/28/17 13:58 Dose: 80 ml Lidocaine/Epinephrine (Xylocaine 1% With Epinephrine 1:100,000) 10 ml INFILT .STK-MED ONE Stop: 12/29/17 09:30 Last Admin: 12/29/17 09:29 Dose: 10 ml Morphine Sulfate (Morphine) 2 mg IVPUSH Q1H PRN PRN Reason: Pain (severe 7-10) Last Admin: 12/31/17 22:22 Dose: 2 mg - Exam Wound/Incisions: Healing Well Lungs: Clear to Auscultation, Normal Respiratory Effort Cardiovascular: Regular Rate, Regular Rhythm GI/Abdominal Exam: Normal Bowel Sounds, Soft, Non-Tender - Problem List & Annotations (1) Mass of stomach SNOMED Code(s): 040525371 Code(s): K31.9 - DISEASE OF STOMACH AND DUODENUM, UNSPECIFIED Status: Acute Current Visit: No - Problem List Review Problem List Initiated/Reviewed/Updated: Yes - My Orders Last 24 Hours: Active Orders 24 hr Category Date Time Status Regular Diet [DIET] Diet 01/03/18 Breakfast Active Medication Orders Hydrocodone Bitart/Acetaminophen ([place] 325-5 Mg) 1 tab PO Q4H PRN PRN Reason: Pain Bisacodyl (Dulcolax) 10 mg RECTAL DAILY [facility] Last Admin: 01/03/18 08:31 Dose: 10 mg Admin: 01/02/18 08:56 Dose: 10 mg Ondansetron HCl (Zofran) 4 mg IV Q4H PRN PRN Reason: Nausea/Vomiting Pantoprazole Sodium (Protonix Iv) 40 mg IVPUSH Q12H [facility] Last Admin: 01/03/18 06:05 Dose: 40 mg Admin: 01/02/18 18:17 Dose: 40 mg Admin: 01/02/18 06:38 Dose: 40 mg Admin: 01/01/18 17:12 Dose: 40 mg Admin: 01/01/18 06:23 Dose: 40 mg Admin: 12/31/17 18:06 Dose: 40 mg Admin: 12/31/17 05:18 Dose: 40 mg Admin: 12/30/17 17:02 Dose: 40 mg Admin: 12/30/17 05:32 Dose: 40 mg Admin: 12/29/17 17:44 Dose: 40 mg Admin: 12/29/17 06:31 Dose: 40 mg Admin: 12/28/17 19:24 Dose: 40 mg Admin: 12/28/17 08:51 Dose: 40 mg Admin: 12/27/17 19:54 Dose: 40 mg Sodium Chloride (Saline Flush) 10 ml FLUSH ASDIRECTED PRN PRN Reason: Keep Vein Open Last Admin: 01/03/18 07:36 Dose: 10 ml Admin: 01/03/18 06:05 Dose: 10 ml Admin: 01/02/18 18:20 Dose: 10 ml Admin: 01/01/18 06:23 Dose: 10 ml Admin: 12/31/17 22:23 Dose: 10 ml Admin: 12/30/17 23:37 Dose: 10 ml Admin: 12/29/17 09:09 Dose: 10 ml Admin: 12/29/17 07:30 Dose: 10 ml Admin: 12/27/17 19:54 Dose: 10 ml - Assessment Assessment (Free Text/Narrative):: ready for discharge - Plan Plan (Free Text/Narrative):: will feed a regular breakfast and if tolerates will discharge
--- NOTE | 2018-01-03 10:33 | PCM.DCSUM1 ---
Discharge Summary - Hospital Course Free Text/Narrative:: Pt was admitted with anemia. She underwent an egd, which again demonstrated the gastric polyp. Bx of the polyp was done again, and the bleeding area was fulgerated. CT scan was obtained and confirming the polyp. She underwent a wedge resection of the gastric lesion. Post op course was unremarkable. NGT was removed the following day. Started on ice chips which she tolerated. This was then advanced from clear to full liquids. Had return of normal bowel movements. 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 She will be referred to [facility] to see if any further treatment is warranted. - Discharge Data Discharge Date: 01/03/18 Discharge Disposition: Home, Self-Care 01 Condition: Good - Discharge Diagnosis/Problem(s) (1) Mass of stomach SNOMED Code(s): 269350810 ICD Code: K31.9 - DISEASE OF STOMACH AND DUODENUM, UNSPECIFIED Status: Acute Current Visit: No - Patient Summary/Data Operative Procedure(s) Performed: wedge resectin of gastric polyp - Patient Instructions Diet: Usual Diet as Tolerated Activity: No Strenuous Activities, Rest and Relax Today Driving: Do Not Drive (until Tuesday ) Showering/Bathing: May Shower, No Tub Bathing/Swimming Notify Provider of: Fever, Increased Pain - Discharge Plan Prescriptions/Med Rec: Acetaminophen/HYDROcodone [[place] 325-5 MG] 1 - 2 tab PO Q6H PRN #20 tab PRN Reason: Pain Docusate Sodium [Colace] 100 mg PO BID #20 capsule Home Medications: Home Meds Acetaminophen/HYDROcodone [[place] 325-5 MG] 1 - 2 tab PO Q6H PRN #20 tab [Rx] Docusate Sodium [Colace] 100 mg PO BID #20 capsule 01/03/18 [Rx] Patient Handouts: Blood Transfusion, Adult, [id number], Venous Thromboembolism, Fall Prevention in Hospitals, Adult, Blood Transfusion, Adult, Care After, [id number] Referrals: Ilan Rao MD [Physician] - 01/06/18 (erich ) - Patient Data Vitals - Most Recent: Last Vital Signs Temp 36.6 C 01/03/18 02:30 Pulse 68 01/03/18 02:30 Resp 18 01/03/18 02:30 BP 118/68 03/20/18 02:30 Pulse Ox 98 01/03/18 02:30 Weight - Most Recent: 58.105 kg I&O - Last 24 hours: Intake & Output 01/02/18 01/03/18 01/03/18 22:59 06:59 14:59 Output Total 800 Balance -800 Med Orders - Current: Current Medications Hydrocodone Bitart/Acetaminophen ([place] 325-5 Mg) 1 tab PO Q4H PRN PRN Reason: Pain Bisacodyl (Dulcolax) 10 mg RECTAL DAILY [facility] Last Admin: 01/03/18 08:31 Dose: 10 mg Ondansetron HCl (Zofran) 4 mg IV Q4H PRN PRN Reason: Nausea/Vomiting Pantoprazole Sodium (Protonix Iv) 40 mg IVPUSH Q12H [facility] Last Admin: 01/03/18 06:05 Dose: 40 mg Sodium Chloride (Saline Flush) 10 ml FLUSH ASDIRECTED PRN PRN Reason: Keep Vein Open Last Admin: 01/03/18 07:36 Dose: 10 ml Discontinued Medications Bupivacaine HCl (Marcaine 0.5%) 10 ml INFILT .STK-MED ONE Stop: 12/29/17 09:30 Last Admin: 12/29/17 09:29 Dose: 10 ml Cefazolin Sodium (Ancef) 1 gm IVPUSH ONETIME ONE Stop: 12/29/17 09:01 Last Admin: 12/29/17 09:06 Dose: 1 gm Diatrizoate Meglum/Diatrizoate Sod (Gastrografin 37%) 30 ml PO . DIRECTED ONE Stop: 12/28/17 13:46 Last Admin: 12/28/17 13:58 Dose: 30 ml Sodium Chloride (Normal Saline) 1,000 mls @ 125 mls/hr IV ASDIRECTED [facility] Last Admin: 12/28/17 02:13 Dose: 125 mls/hr Sodium Chloride (Normal Saline) 250 mls @ 100 mls/hr IV ASDIRECTED [facility] Last Admin: 12/27/17 23:52 Dose: 100 mls/hr Potassium Chloride/Dextrose/Sod Cl (D5 1/2 Ns W/ 20 Meq/L Kcl) 1,000 mls @ 75 mls/hr IV Q13H [facility] Last Admin: 12/29/17 15:57 Dose: Not Given Lactated Ringer's (Ringers, Lactated) 1,000 mls @ 125 mls/hr IV ASDIRECTED [facility] Last Admin: 12/30/17 08:40 Dose: 125 mls/hr Acetaminophen 1,000 mg/ Premix 100 mls @ 400 mls/hr IV Q6H [facility] Stop: 12/30/17 05:14 Last Admin: 12/30/17 05:11 Dose: 400 mls/hr Lactated Ringer's (Ringers, Lactated) 1,000 mls @ 999 mls/hr IV BOLUS ONE Stop: 12/29/17 13:28 Last Admin: 12/29/17 12:52 Dose: 999 mls/hr Lactated Ringer's (Ringers, Lactated) 1,000 mls @ 999 mls/hr IV BOLUS ONE Stop: 12/29/17 13:25 Last Admin: 12/29/17 12:50 Dose: 999 mls/hr Potassium Chloride/Dextrose/Sod Cl (D5 1/2 Ns W/ 20 Meq/L Kcl) 1,000 mls @ 75 mls/hr IV Q8H [facility] Stop: 12/31/17 22:59 Last Infusion: 12/31/17 20:55 Dose: Infused Potassium Chloride/Dextrose/Sod Cl (D5 1/2 Ns W/ 20 Meq/L Kcl) 1,000 mls @ 75 mls/hr IV Q13H [facility] Last Admin: 01/02/18 20:06 Dose: Not Given Iopamidol (Isovue-370 (76%)) 100 ml IV ONETIME ONE Stop: 12/28/17 13:46 Last Admin: 12/28/17 13:58 Dose: 80 ml Lidocaine/Epinephrine (Xylocaine 1% With Epinephrine 1:100,000) 10 ml INFILT .STK-MED ONE Stop: 12/29/17 09:30 Last Admin: 12/29/17 09:29 Dose: 10 ml Morphine Sulfate (Morphine) 2 mg IVPUSH Q1H PRN PRN Reason: Pain (severe 7-10) Last Admin: 12/31/17 22:22 Dose: 2 mg *Q Meaningful Use (DIS) - VTE *Q VTE Criteria *Q: - Stroke *Q Stroke Criteria *Q: - AMI *Q AMI Criteria *Q:
== END 2018-01-03 13:57 | disposition home or self-care (01) | DRG 988 ==
LOC: FB.MS 17:08
PROVIDERS: ADMIT Surgery; ATTEND Surgery
PROC: 30233N1 Transfusion of Nonautologous Red Blood Cells into Peripheral Vein, Percutaneous Approach (ICD-10-PCS; 2017-12-27)
PROC: 0DB68ZX Excision of Stomach, Via Natural or Artificial Opening Endoscopic, Diagnostic (ICD-10-PCS; 2017-12-28)
PROC: 0D568ZZ Destruction of Stomach, Via Natural or Artificial Opening Endoscopic (ICD-10-PCS; 2017-12-28)
PROC: 0DB60ZX Excision of Stomach, Open Approach, Diagnostic (ICD-10-PCS; principal; 2017-12-29)
DX: D48.1 Neoplasm of uncertain behavior of connective and other soft tissue (principal); K92.1 Melena; K31.7 Polyp of stomach and duodenum; D50.0 Iron deficiency anemia secondary to blood loss (chronic); Z86.19 Personal history of other infectious and parasitic diseases
CPT/HCPCS: 36415; 36430; 74177; 80048; 80053; 81003; 81025; 85018; 85025; 85610; 86850; 86900; 86901; 86920; 86922; 88305; 88342; 94150; A9270-GY; C9113; J0131; J0690; J1100; J1885; J2250; J2270; J2370; J2405; J2704; J3010; J3480; J7040; J7050; J7120; P9016; Q9967